=== PATIENT | female | born 1995 | race African-American/Black ===

== ENCOUNTER 2017-06-18 14:19 | Emergency (ER) | payer OTHER ==
[~2017-06-18 14:19] MED LIST: CYCL5TAB PO; LIDO5DIS35 TD; Z.0.NO CURRENT MEDS
[2017-06-18 14:40] VITALS: BP 104/62; PULSE 70; RESP 18; TEMP 98.8; O2SAT 99
[2017-06-18 17:19] LABS: BILIRUBIN, URINE NEG (NEG); BLOOD, URINE NEG (NEG); GLUCOSE,URINE NEG (NEG); KETONE, URINE NEG (NEG); NITRITE,URINE NEG (NEG); PH, URINE 5.5 (5.0-8.5); SQUAMOUS EPITHELIAL CELL URINE 4 /hpf (0-5); URINE COLOR YELLOW (YELLW/STRAW); URINE LEUKOCYTE ESTERASE NEG (NEG)
--- NOTE | 2017-06-18 17:19 | PD ---
HPI Chief Complaint: Back/ Neck Pain or Injury Time Seen by Provider: 16:41 Travel History International Travel<30 days: No Contact w/Intl Traveler<30days: No Traveled to known affect area: No History of Present Illness HPI 22-year-old female with left low back pain times one day. Is not recall specific injury. Symptom severity is moderate. Slightly aggravated by moving and palpation of the area . No alleviating factors. Denies fever or chills. Reports urinary frequency and mild dysuria. She had similar episodes in the past with pyelonephritis although the symptoms are much less severe. Denies nausea or vomiting. Denies vaginal discharge. PFSH Past Medical History Asthma: Yes Developmental Delay: No Diminished Hearing: No Genitourinary: Yes (UTI) Immunizations Current: Yes LMP: 05/28/17 Social History Alcohol Use: No Tobacco Use: No Substance Use: No Allergies-Medications (Allergen,Severity, Reaction): Coded Allergies: No Known Allergies (Verified , 07/24/12) Reported Meds & Prescriptions Reported Meds & Active Scripts Active Flexeril (Cyclobenzaprine HCl) 5 Mg Tab 5-10 Mg PO Q8HPRN Lidoderm Patch (Lidocaine) 5 % Dis 1 Patch TD DAILY Reported No Current Meds (Miscellaneous Medication) Misc Review of Systems Except as stated in HPI: all other systems reviewed are Neg General / Constitutional: No: Fever Eyes: No: Visual changes HENT: No: Headaches Cardiovascular: No: Chest Pain or Discomfort Gastrointestinal: No: Abdominal Pain Genitourinary: Positive: Frequency, Dysuria Physical Exam Narrative GENERAL: Alert well-appearing 22-year-old female. Resting comfortably on stretcher SKIN: Warm and dry. HEAD: Normocephalic. EYES: No scleral icterus. No injection or drainage. NECK: Supple CARDIOVASCULAR: Regular rate and rhythm RESPIRATORY: Breath sounds equal bilaterally. No accessory muscle use. GASTROINTESTINAL: Abdomen soft, non-tender, nondistended. No guarding or rebound MUSCULOSKELETAL: No cyanosis, or edema. BACK: Mild left CVA tenderness. Data Data Last Documented VS Vital Signs Date Time Temp Pulse Resp B/P (MAP) Pulse Ox O2 Delivery O2 Flow Rate FiO2 06/18/17 14:40 98.8 70 18 104/62 (76) 99 Orders Orders Urinalysis - C+S If Indicated (06/18/17 14:42) Ed Urine Pregnancytest Poc (06/18/17 14:42) Ed Discharge Order (06/18/17 17:31) Labs Laboratory Tests Test 06/18/17 16:35 Urine Color YELLOW Urine Turbidity HAZY Urine pH 5.5 Urine Specific [place] 1.018 Urine Protein TRACE mg/dL Urine Glucose (UA) NEG mg/dL Urine Ketones NEG mg/dL Urine Occult Blood NEG Urine Nitrite NEG Urine Bilirubin NEG Urine Urobilinogen LESS THAN 2.0 MG/DL Urine Leukocyte Esterase NEG Urine RBC LESS THAN 1 /hpf Urine WBC 1 /hpf Urine Squamous Epithelial Cells 4 /hpf Microscopic Urinalysis Comment CULT NOT INDICATED MDM Medical Decision Making Medical Screen Exam Complete: Yes Emergency Medical Condition: Yes Interpretation(s) Urine negative UA unremarkable Differential Diagnosis Pyelonephritis, nephrolithiasis, lumbar strain Narrative Course This is a well-appearing 22-year-old female with left low back pain for 1 day. She is nontoxic-appearing. Vital signs are stable. UA is unremarkable. Patient be treated for musculoskeletal back pain. She was instructed to return if she develops new or worsening symptoms. Patient agrees to this plan UA Diagnosis Primary Impression: Low back pain Qualified Codes: M54.5 - Low back pain Referrals: Primary Care Physician Departure Forms: Tests/Procedures, Work Release Enter return to work date: Jun 20, 2017 Additional Instructions: Tylenol or ibuprofen for pain. Stay well hydrated. Apply ice and/or heat to the back. Return if he developed new or worsening symptoms Disposition: 01 DISCHARGE HOME Condition: Stable Jackie Begum Jun 18, 2017 17:19
== END 2017-06-18 18:03 | disposition home or self-care (01) ==
LOC: NEPK 14:19
DX: M54.5 Low back pain (principal)
CPT/HCPCS: 81001; 84703; 99283